=== PATIENT | female | born 1965 | race Caucasian/White ===

== ENCOUNTER 2022-07-29 14:14 | Emergency (ER) | payer OTHER ==
[~2022-07-29] VITALS: Ht 165.1 cm; Wt 52.2 kg
[~2022-07-29 14:14] MED LIST: LEVSIN/SL0.125 MG SL; MIRALAX510 GM PO; ORPH100T PO; SYNTHROID150 MCG PO
[2022-07-29] MEDS ORDERED: SYNTHROID137 MCG PO (14:57)
[2022-07-29] MEDS ORDERED: ZOLOFT100 MG PO (14:58)
== END 2022-07-29 18:57 | disposition home or self-care (01) ==
LOC: ER 14:14
DX: K52.9 Noninfective gastroenteritis and colitis, unspecified (principal); Z20.822 Contact with and (suspected) exposure to COVID-19

== ENCOUNTER 2022-08-02 22:19 | Emergency (ER) | payer OTHER ==
[~2022-08-02] VITALS: Ht 165.1 cm; Wt 49.9 kg
[~2022-08-02 22:19] MED LIST changes: +SYNTHROID137 MCG PO; +ZOLOFT100 MG PO
[2022-08-03] MEDS ORDERED: ONDANSETRON ODT4 MG PO (05:37)
[2022-08-03] MEDS ORDERED: CIPRO500 MG PO (05:37)
[2022-08-03] MEDS ORDERED: INTESTINEX680 M1 PO (05:37)
[2022-08-03] MEDS ORDERED: PEPCID40 MG PO (05:37)
== END 2022-08-03 05:41 ==
LOC: ER 22:19
DX: K52.9 Noninfective gastroenteritis and colitis, unspecified (principal)

== ENCOUNTER 2023-06-19 12:16 | Emergency (ER) | payer OTHER ==
[~2023-06-19] VITALS: Ht 167.6 cm; Wt 51.7 kg
[~2023-06-19 12:16] MED LIST changes: +CIPRO500 MG PO; +INTESTINEX680 M1 PO; +ONDANSETRON ODT4 MG PO; +PEPCID40 MG PO
== END 2023-06-19 19:29 | disposition home or self-care (01) ==
LOC: ER 12:16
DX: A05.9 Bacterial foodborne intoxication, unspecified (principal); R19.7 Diarrhea, unspecified; R10.9 Unspecified abdominal pain
CPT/HCPCS: 36415; 74177; Q9965

== ENCOUNTER 2023-06-30 19:18 | Emergency (ER) | payer OTHER ==
[~2023-06-30] VITALS: Ht 167.6 cm; Wt 52.2 kg
== END 2023-06-30 22:20 | disposition home or self-care (01) ==
LOC: ER 19:18
DX: R19.7 Diarrhea, unspecified (principal)

== ENCOUNTER 2023-07-13 12:48 | Emergency (ER) | payer OTHER ==
[~2023-07-13] VITALS: Ht 167.6 cm; Wt 49.0 kg
[2023-07-13] MEDS ORDERED: DICY20TA PO (18:36)
[2023-07-13] MEDS ORDERED: PEPCID AC20 MG PO (18:36)
[2023-07-13] MEDS ORDERED: INTESTINEX680 M1 PO (18:36)
== END 2023-07-13 19:18 | disposition home or self-care (01) ==
LOC: ER 12:48
DX: K52.9 Noninfective gastroenteritis and colitis, unspecified (principal)